=== PATIENT | female | born 1945 | race Two or more races ===

== ENCOUNTER 2021-02-20 09:49 | Outpatient (CLI) | payer OTHER | END 2021-02-20 09:54 | disposition home or self-care (01) | LOC: RX STUDY 09:49 | PROVIDERS: ATTEND Otolaryngology | DX: R13.14 Dysphagia, pharyngoesophageal phase (principal) ==

== ENCOUNTER 2023-12-31 08:52 | Outpatient (CLI) | payer OTHER ==
[2023-12-31 09:43] LABS: HEMATOCRIT 39.5 % (36.0-45.00); MEAN CELL VOLUME 93.4 fL (80.00-100.00); MEAN CORPUSCULAR HEMOGLOBIN 30.7 pg (27.00-32.0); MEAN CORPUSCULAR HGB CONC 32.9 g/dl (32.0-36.0); PLATELET COUNT 297 K/uL (150-450); RED BLOOD COUNT 4.23 M/uL (4.00-6.00); RED CELL DISTRIBUTION WIDTH 13.7 % (11.5-14.5)
[2023-12-31 10:01] LABS: INR 0.97; PARTIAL THROMBOPLASTIN TIME 28.6 SECONDS (22.0-34.0); PROTHROMBIN TIME 10.6 SECONDS (9.0-11.5)
[2023-12-31 10:47] LABS: PH,URINE 6.5 (5.0-8.0); URINE APPEARANCE Clear; URINE BACTERIA 17.6 uL (0.0-1933); URINE BILIRRUBIN Negative (NEGATIVE); URINE BLOOD Moderate; URINE COLOR Yellow; URINE GLUCOSE Negative (NEGATIVE); URINE KETONE Negative (NEGATIVE); URINE LEUKOCYTE Negative; URINE NITRATE Negative; URINE PROTEIN Negative (NEGATIVE); URINE RBC 129.3 uL (0.0-20.8); URINE UROBILINOGEN 0.2 E.U./dl
[2023-12-31 10:49] LABS: URINE CAST 0.45 uL (0.0-1.40)
[2023-12-31 11:00] LABS: ALBUMIN 3.4 gm/dL (3.4-5.0); BILIRUBIN TOTAL 0.51 mg/dL (0.3-1.2); CALCIUM 9.1 mg/dL (8.5-10.1); CREATININE SERUM 0.42 mg/dL (0.55-1.02); GFR 146.69; GLOBULINA 3.3 G/DL (2.4-3.5); POTASSIUM 4.44 mEq/L (3.5-5.1); TOTAL PROTEIN 6.7 gm/dL (6.4-8.2)
[2023-12-31 11:14] LABS: COL EPI 121 SECONDS (82-175)
== END 2023-12-31 09:04 | disposition home or self-care (01) ==
LOC: RAD 08:52 → LAB 08:52 → RAD 09:04
PROVIDERS: ATTEND Orthopaedic Surgery
DX: D64.9 Anemia, unspecified (principal); E88.89 Other specified metabolic disorders; D68.8 Other specified coagulation defects; N39.0 Urinary tract infection, site not specified; Z22.322 Carrier or suspected carrier of Methicillin resistant Staphylococcus aureus; M25.531 Pain in right wrist; M25.532 Pain in left wrist; I10 Essential (primary) hypertension

== ENCOUNTER 2024-05-12 09:29 | Outpatient (CLI) | payer OTHER | END 2024-05-12 09:31 | disposition home or self-care (01) | LOC: RAD 09:29 | PROVIDERS: ATTEND Orthopaedic Surgery | DX: S52.571D Other intraarticular fracture of lower end of right radius, subsequent encounter for closed fracture with routine healing (principal) ==